=== PATIENT | female | born 1980 | race Caucasian/White ===

== ENCOUNTER 2016-10-16 19:41 | Emergency (ER) | payer MEDICARE ==
[~2016-10-16] VITALS: Ht 162.6 cm; Wt 81.8 kg
[2016-10-16 20:59] LABS: INTER. NORMALIZED RATIO 1.1; PROTHROMBIN TIME 11.8 SEC (10.2-12.9)
[2016-10-16 21:02] LABS: PTT 31.5 SEC (25-37)
[2016-10-16 23:37] LABS: BASOPHIL COUNT 0.1 K/uL (0-0.1); EOSINOPHIL (%) 2.9 % (0-5); EOSINOPHIL COUNT 0.3 K/uL (0-0.3); HEMATOCRIT 42.9 % (36.0-46.0); IMMATURE GRANULOCYTE (%) 0.3 % (0.0-0.7); INSTRUMENT ABS NEUTROPHIL CT 7.5 K/uL; LYMPHOCYTE COUNT 2.5 K/uL (1.0-2.8); MCH 30.6 PG (29.0-34.0); MCHC 33.3 G/DL (30.0-36.0); MCV 91.9 FL (83-99); MEAN PLAT.VOLUME 10.1 uM^3 (9.5-12.4); MONOCYTE (%) 5.8 % (3-12); MONOCYTE COUNT 0.7 K/uL (0-0.8); NEUTROPHIL (%) 67.4 % (45-76); NEUTROPHIL COUNT 7.5 K/uL (1.8-6.4); PLATELET COUNT 318 K/uL (156-360); RBC DIS.WIDTH-CV 11.5 % (11.8-14.6); RBC DIS.WIDTH-SD 38.9 % (39-53); RED BLOOD COUNT 4.67 M/uL (3.80-5.20); WHITE BLOOD COUNT 11.2 K/uL (4.1-10.2)
[2016-10-16 23:40] LABS: CHLORIDE 108 mEq/L (99-109); POTASSIUM 4.1 mEq/L (3.7-5.4); SODIUM 138 mEq/L (136-147)
[2016-10-16 23:41] LABS: GLUCOSE 87 mg/dL (70-99)
[2016-10-16 23:43] LABS: ANION GAP 8 MEQ/L (2-14)
[2016-10-16 23:45] LABS: GFR ESTIMATE (CALCULATED) > 59 mL/min/
[2016-10-16 23:46] LABS: UREA NITROGEN (BUN) 11 mg/dL (9-23)
[2016-10-16 23:53] LABS: QUANTITATIVE HCG < 4.0 MIU/ML
[2016-10-17 01:12] VITALS: BP 109/80
== END 2016-10-17 01:12 | disposition home or self-care (01) ==
LOC: EME 19:41
PROVIDERS: Nurse Practitioner Family
PROC: 2W0RX1Z Change Splint on Left Lower Leg (ICD-10-PCS; principal; 2016-10-16)
DX: M79.662 Pain in left lower leg (principal); K20.9 Esophagitis, unspecified; S92.902D Unspecified fracture of left foot, subsequent encounter for fracture with routine healing; Z79.82 Long term (current) use of aspirin; Z90.49 Acquired absence of other specified parts of digestive tract
CPT/HCPCS: 71275; 80048; 84702; 85025; 85379; 85610; 85730; 93005; 93971; 99281; 99284; J7030